=== PATIENT | female | born 1960 | race Two or more races ===

== ENCOUNTER 2017-07-12 09:39 | Inpatient (IN) | payer OTHER ==
[2017-07-04 14:41] LABS: APPEARANCE,URINE CLEAR; KETONES,URINE NEGATIVE (NEGATIVE); LEUKOCYTE ESTERASE ,URINE 2+ (NEGATIVE); NITRITE,URINE NEGATIVE (NEGATIVE); PH,URINE 6 (4.5-8.0); PROTEIN,URINE NEGATIVE (NEGATIVE); UROBILINOGEN,URINE NORMAL MG/DL (0.0-1.0)
[2017-07-04 14:44] LABS: BASOPHILS % (AUTO) 1.8 % (0.0-2.0); EOSINOPHILS % (AUTO) 2.7 % (0.0-3.0); LYMPHOCYTES % (AUTO) 36.2 % (20.0-45.0); MEAN CORPUSCULAR HEMOGLOBIN 31.5 PG (27.0-31.0); MEAN CORPUSCULAR HGB CONC 35.1 G/DL (32.0-36.0); MEAN CORPUSCULAR VOLUME 90 FL (80-99); MEAN PLATELET VOLUME 5.9 FL (6.5-10.1); MONOCYTES % (AUTO) 7.6 % (1.0-10.0); NEUTROPHILS % (AUTO) 51.7 % (45.0-75.0); PLATELET COUNT 255 K/UL (150-450); RED BLOOD COUNT 4.51 M/UL (4.20-5.40); RED CELL DISTRIBUTION WIDTH 10.8 % (11.6-14.8); WHITE BLOOD COUNT 6.1 K/UL (4.8-10.8)
[2017-07-04 14:51] LABS: BACTERIA,URINE FEW /HPF; RBC,URINE 0-2 /HPF (0 - 2); SQUAMOUS EPITHELIAL CELL,UR FEW /LPF (NONE/OCC)
[2017-07-04 14:58] LABS: ALANINE AMINOTRANSFERASE 38 U/L (12-78); ALBUMIN/GLOBULIN RATIO 1.2 (1.0-2.7); ANION GAP 8 mmol/L (5-15); ASPARTATE AMINO TRANSFERASE 18 U/L (15-37); CALCIUM 9.1 MG/DL (8.5-10.1); CARBON DIOXIDE 26 MMOL/L (21-32); CHLORIDE 106 MMOL/L (98-107); CREATININE 0.7 MG/DL (0.55-1.30); GLOMERULAR FILTRATION RATE > 60 mL/min (>60); POTASSIUM 3.9 MMOL/L (3.5-5.1); SODIUM 140 MMOL/L (136-145); TOTAL PROTEIN 7.4 G/DL (6.4-8.2)
[2017-07-04 15:05] LABS: INR 0.9 (0.9-1.1); PROTHROMBIN TIME 9.6 SEC (9.30-11.50)
--- NOTE | 2017-07-04 15:09 | Diagnostic Imaging Report ---
Indication: Cough Technique: 2 views of the chest Comparison: none. Findings: Lungs and pleural spaces are clear. Heart size is normal. Bones are unremarkable. Impression: No acute process
[~2017-07-12] VITALS: Ht 157.5 cm; Wt 82.6 kg
[2017-07-12] VITALS (9 sets, daily range): BP systolic 97–124; BP diastolic 62–84
[~2017-07-12 09:39] MED LIST: ceFAZolin sod 2 GM in D5W 110 ML IVPB ONE
[2017-07-12] MEDS ORDERED: NKM (10:19)
[2017-07-12 10:40] LABS: BASOPHILS % (AUTO) 1.1 % (0.0-2.0); EOSINOPHILS % (AUTO) 0.2 % (0.0-3.0); LYMPHOCYTES % (AUTO) 34.1 % (20.0-45.0); MEAN CORPUSCULAR HEMOGLOBIN 30.3 PG (27.0-31.0); MEAN CORPUSCULAR HGB CONC 33.4 G/DL (32.0-36.0); MEAN CORPUSCULAR VOLUME 91 FL (80-99); MEAN PLATELET VOLUME 6.4 FL (6.5-10.1); MONOCYTES % (AUTO) 10.3 % (1.0-10.0); NEUTROPHILS % (AUTO) 54.3 % (45.0-75.0); PLATELET COUNT 185 K/UL (150-450); RED BLOOD COUNT 4.79 M/UL (4.20-5.40); RED CELL DISTRIBUTION WIDTH 10.9 % (11.6-14.8); WHITE BLOOD COUNT 3.7 K/UL (4.8-10.8)
[2017-07-12] MEDS ORDERED: Thrombin 5000 units TOPIC ONE (10:56)
[2017-07-12] MEDS ORDERED: Thrombin 5000 units spray kit TOPIC ONE (10:57)
[2017-07-12] MEDS ORDERED: Bacitracin Oint 15gm Tube TOPIC ONE (10:57)
[2017-07-12] MEDS ORDERED: Gelfoam Absorbable 1gm powder pkt TOPIC ONE (10:57)
[2017-07-12] MEDS ORDERED: Bupivacaine 0.5% Inj 30 ml vial INJ ONE (10:57)
[2017-07-12] MEDS ORDERED: Vancomycin 1gm inj IVPB ONE (10:57)
[2017-07-12] MEDS ORDERED: Bacitracin 50000 Units Vial ONE (10:58)
--- NOTE | 2017-07-12 11:18 | Pre-Procedure Note/Attestation ---
Pre-Procedure Note/Attestation Complete Prior to Procedure Procedure Narrative: C3-6 laminoplasty, Inferior pole c2, and superior pole C7 laminectomy Indications for Procedure Pre-Operative Diagnosis: c2-7 stenosis Attestation I attest that I discussed the nature of the procedure; its benefits; risks and complications; and alternatives (and the risks and benefits of such alternatives ), prior to the procedure, with the patient (or the patient's legal major account representative). I attest that, if there was a reasonable possibility of needing a blood transfusion, the patient (or the patient's legal major account representative) was given the [facility] standardized written summary, pursuant to the Kennedy Rhina Blood Safety Act ([place] Health and Safety Code # 1645, as amended). I attest that I re-evaluated the patient just prior to the surgery and that there has been no change in the patient's H&P, except as documented below: SPIKE ADDISON Jul 12, 2017 11:18
[2017-07-12] MEDS ORDERED: Propofol 200mg/20ml IV ONE (11:56)
[2017-07-12] MEDS ORDERED: LR 1000ml ONE (11:56)
[2017-07-12] MEDS ORDERED: Glycopyrrolate 0.2mg/ml 1ml Vial ONE (11:56)
[2017-07-12] MEDS ORDERED: Midazolam 2mg/2ml Inj ONE (11:56)
[2017-07-12] MEDS ORDERED: Neostigmine 1mg/ml 10ml Inj ONE (11:56)
[2017-07-12] MEDS ORDERED: Zemuron 50mg/5ml Inj IV ONE (11:56)
[2017-07-12] MEDS ORDERED: Ketorolac 30mg Inj ONE (11:56)
[2017-07-12] MEDS ORDERED: Succinylcholine 20mg/ml 10ml vial ONE (11:56)
[2017-07-12] MEDS ORDERED: fentaNYL 100 mcg/2 mL IV ONE ×2 (11:56→12:00)
[2017-07-12] MEDS ORDERED: Morphine Sulfate 10mg/ml Inj ONE (11:56)
[2017-07-12] MEDS ORDERED: NS Irrig 1000ml ONE (12:00)
[2017-07-12] MEDS ORDERED: Sterile Water Irrig 1000ml IRRIG ONE (12:00)
[2017-07-12] MEDS ORDERED: Lidocaine 1% 10mg/ml/EPI 0.01mg/ml 50ml INJ ONE (13:00)
--- NOTE | 2017-07-12 13:25 | Anethesia Preoperative Eval ---
Anesthesia Pre-op PMH/ROS General Date of Evaluation: Jul 12, 2017 Time of Evaluation: 11:52 Anesthesiologist: Carolina ASA Score: ASA 2 Mallampati Score Class I : Soft palate, uvula, fauces, pillars visible Class II: Soft palate, uvula, fauces visible Class III: Soft palate, base of uvula visible Class IV: Only hard plate visible Mallampati Classification: Class II Surgeon: Adam Diagnosis: cervical spinal stenosis Surgical Procedure: Posterior cervical laminotomy C3 to C6 Anesthesia History: none Family History: no anesthesia problems Allergies: Coded Allergies: No Known Allergies (Unverified , 07/12/17) Medications: see eMAR Past Medical History Cardiovascular: Reports: HTN, Denies: CAD, MA, valve dz, arrhythmia, other Pulmonary: Denies: asthma, COPD, ASHLYN, other Gastrointestinal/Genitourinary: Reports: GERD, Denies: CRI, ESRD, other Neurologic/Psychiatric: Reports: other - chronic pain, Denies: dementia, CVA, depression/anxiety, TIA Endocrine: Denies: DM, hypothyroidism, steroids, other HEENT: Denies: cataract (L), cataract (R), glaucoma, IONE (L), IONE (R), other Hematology/Immune: Denies: anemia, DVT, bleeding disorder, other Musculoskeletal/Integumentary: Denies: OA, RA, DJD, DDD, edema, other Other: other - overweight PMH Narrative: as above PSxH Narrative: none Anesthesia Pre-op Phys. Exam Physician Exam Last Vital Signs Date Time Temp Pulse Resp B/P (MAP) Pulse Ox O2 Delivery O2 Flow Rate FiO2 07/12/17 10:21 98.4 78 17 108/75 97 Room Air Constitutional: NAD Neurologic: CN 2-12 intact Cardiovascular: RRR, no M/R/G Respiratory: CTA Gastrointestinal: S/NT/ND Airway Exam Mallampati Score: Class II MO: full Neck: flexible ROM: limited Teeth: missing Dentures: no upper, no lower Anesthesia Pre-op A/P Labs Hematology Test 07/12/17 10:00 White Blood Count 3.7 K/UL (4.8-10.8) L Red Blood Count 4.79 M/UL (4.20-5.40) Hemoglobin 14.5 G/DL (12.0-16.0) Hematocrit 43.4 % (37.0-47.0) Mean Corpuscular Volume 91 FL (80-99) Mean Corpuscular Hemoglobin 30.3 PG (27.0-31.0) Mean Corpuscular Hemoglobin Concent 33.4 G/DL (32.0-36.0) Red Cell Distribution Width 10.9 % (11.6-14.8) L Platelet Count 185 K/UL (150-450) Mean Platelet Volume 6.4 FL (6.5-10.1) L Neutrophils (%) (Auto) 54.3 % (45.0-75.0) Lymphocytes (%) (Auto) 34.1 % (20.0-45.0) Monocytes (%) (Auto) 10.3 % (1.0-10.0) H Eosinophils (%) (Auto) 0.2 % (0.0-3.0) Basophils (%) (Auto) 1.1 % (0.0-2.0) Studies Pre-op Studies: EKG - NSR Risk Assessment & Plan Assessment: ASA 2 Plan: GA with ETT prone position neuromonitoring Status Change Before Surgery: No Pre-Antibiotics Drug: Ancef 1 gr. Given Within 1 Hr of Incision: Yes Time Given: 12:42 SARIKA MCCLENDON M.D. Jul 12, 2017 13:25
[2017-07-12] MEDS ORDERED: LR 1000ml 1,000 ML IVLG SCH (13:38)
[2017-07-12] MEDS ORDERED: Midazolam 2mg/2ml Inj IVP PRN (13:45)
[2017-07-12] MEDS ORDERED: Hydromorphone 0.5mg/0.5ml inj IVP PRN (13:45)
[2017-07-12] MEDS ORDERED: Meperidine 50mg/ml Inj(FOR RIGORS ONLY) IV PRN ×2 (13:45)
[2017-07-12] MEDS ORDERED: DiphenhydrAMINE 50mg/ml Inj IVP PRN (13:45)
[2017-07-12] MEDS ORDERED: Metoclopramide 10mg/2ml Inj IVP PRN ×2 (13:45→15:45)
[2017-07-12] MEDS ORDERED: Ketorolac 30mg Inj IV PRN (13:45)
[2017-07-12] MEDS ORDERED: Acetaminophen (Non formulary) 100 ML IV ONE (14:00)
--- NOTE | 2017-07-12 15:34 | Brief Operative Note ---
Immediate Post Operative Note Operative Note Pre-op Diagnosis: c2-7 stenosis Procedure: c3-6 laminoplasty, c2 and c7 partial laminectomy, R c34 and c45 laminoforaminotomy Post-op Diagnosis: same as pre-op Findings: consistent w/pre-op dx studies Surgeon: kong Parquetry Floor Layer: kashif mota Anesthesiologist: rhys Anesthesia: general Specimen: none Complications: none Condition: stable Fluids: 1000 Estimated Blood Loss: volume - 100 Drains: hemovac Implant(s) used?: Yes - aesculap laminoplasty screws and graft SPIKE ADDISON Jul 12, 2017 15:34
[2017-07-12] MEDS ORDERED: HYDROmorphone 1mg/ml Carpuject SUBQ PRN (15:45)
[2017-07-12] MEDS ORDERED: Norco 5mg/325mg tab ORAL PRN (15:45)
[2017-07-12] MEDS ORDERED: HYDROmorphone 1mg/ml Carpuject IVP PRN (15:45)
[2017-07-12] MEDS ORDERED: Norco 7.5mg/325mg tab ORAL PRN ×2 (15:45)
[2017-07-12] MEDS ORDERED: Milk of Magnesia 30ml Ud ORAL PRN ×2 (15:45→19:15)
--- NOTE | 2017-07-12 16:33 | Immediate Post-Op Evaluation ---
Immediate Post-Op Evalulation Immediate Post-Op Evalulation Procedure: C3-C6 posterior cervical laminotomy with interbody fusion Date of Evaluation: Jul 12, 2017 Time of Evaluation: 16:32 IV Fluids: 1200 Blood Products: none Estimated Blood Loss: 100 Urinary Output: 100 Blood Pressure Systolic: 116 Blood Pressure Diastolic: 75 Pulse Rate: 74 Respiratory Rate: 20 O2 Sat by Pulse Oximetry: 100 Temperature (Fahrenheit): 97.7 Pain Score (1-10): 2 Nausea: No Vomiting: No Complications none Patient Status: reacts, patent, extubated, none Hydration Status: adequate SARIKA MCCLENDON M.D. Jul 12, 2017 16:33
--- NOTE | 2017-07-12 17:45 | Diagnostic Imaging Report ---
Indication: PAIN right arm pain left hand numbness Technique: Intraoperative Comparison: None Findings: Intraoperative images document multilevel posterior cervical spine fusion surgery Impression: Intraoperative imaging, as described
--- NOTE | 2017-07-12 17:45 | Operative Note - Dictated ---
DATE OF OPERATION: 07/12/2017 SURGEON: Sheng Medina M.D. SENIOR CYTOTECHNOLOGIST: Jose Hooper PA-C. ANESTHESIOLOGIST: Kyle Figueroa M.D. ANESTHESIA TYPE: General endotracheal anesthesia. 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 PROCEDURE: 1. Laminoplasty C3. 2. Laminoplasty C4. 3. Laminoplasty C5. 4. Laminoplasty C6. 5. Partial laminectomy inferior one-half of C2 and laminectomy partial superior one-half of C7. 6. Laminal foraminotomy right side C3-C4 and C4-C5 with decompression of nerve roots. 7. Interlaminar fusion using plates and screws as well as allograft laminoplasty bone (Aesculap ) at C3, C4, C5 and C6. 8. Use of fluoroscopy. 9. Use of operating microscope. 10. Neurodiagnostic monitoring. 11. Application of Jain pins. ESTIMATED BLOOD LOSS: 100 mL. FLUIDS: 1000 mL. COMPLICATIONS: None. FINDINGS: Stable fixation at C3, C4, C5 and C6 and adequate decompression at the C2 through C7 levels, the nerve roots at right C3-C4 and C4-C5 still partially compressed due to anterior structures. INDICATIONS: The patient is a very pleasant woman who sustained an injury with myeloradiculopathic findings with an MRI consistent with severe cord compression as well as cord signal change. Surgical intervention was required due to neurologic deficit. RISK NOTE: The patient was explained in detail risks and benefits of surgery, but to include but not be limited to those of bleeding, infection, damage to nerves, vessels, tendons, anesthetic risk, allergic reaction, aspiration, and possibly . OPERATIVE PROCEDURE IN DETAIL: The patient was taken to operating suite after general endotracheal anesthesia was obtained. Gilmore catheter was placed. Jain pins were applied using standard sterile technique. The patient was then turned onto a radiolucent table with chest bolsters. Jain was attached to the head attachment. Arms were tucked. All bony prominences were padded. The neck was prepped and draped in usual sterile fashion. At this point, a midline incision was carried out from C2 through C7. Subperiosteal dissection was carried out bilaterally. Self-retaining retractors were put into place. First attention was made to the left side and a laminectomy of the inferior one-half of the C2 lamina was performed on the left side. Similarly, laminectomy of the superior portion of C7 was performed. Once the decompression was complete on both sides, scoring and partial laminar drilling was performed on the left side, which was the hinge side. At this time, I then switched sides and worked on the right side. Similarly, hemilaminectomy was performed of the inferior portion of C2. At this point, a laminal foraminotomy was performed at C3-C4 and C4-C5, this was performed using standard technique by drilling out the lamina as well as the portion of the lateral mass to unroof the underlying nerve roots. Care was taken to leave a adequate bridge for placement of laminoplasty graft. All of this was performed using standard technique at C3-C4 and C4-C5. At this point, then a complete drilling of the laminae on the right side at C3, C4, C5, and C6 was performed. Once I was able to cut through the lamina, care was taken to leave the ligamentum flavum in place. At this point, the appropriate sized Aesculap bone graft as well as plate and screws were chosen. The C3 level was a 4 millimeter graft, C5 level was a 6 millimeter graft, C6 level was 6 millimeter graft. At this point, all screw holes were carefully drilled using standard technique. Final x-rays obtained demonstrating good overall screw positioning with the exception of the screws at C6, which may have been somewhat and therefore a shorter rescue screw was applied. At this point, then a high-speed drill was used to complete the laminectomy of the right side at C7 decompressing the spinal cord further and distally. At this point, once satisfied with the completion of the procedure, copious irrigation was performed. Vancomycin powder was placed deep to the fascia as well as suprafascially the fascia was repaired using #1 Vicryl, subcutaneous closure using 2-0 Vicryl, Dermabond and a sterile dressing was applied. The patient was turned onto her back and Jain pins were removed. Overall tolerating the procedure well. At the time of this dictation, the patient was still awaiting extubation. Sponge and needle counts were correct and neurodiagnostic monitoring remained stable throughout the operation. Sheng Fran Medina DR: BERTIN JOB#: [id number] CC:
[2017-07-12] MEDS ORDERED: Norco 10mg/325mg tab ORAL PRN ×2 (20:30)
[2017-07-12] MEDS ORDERED: Tylenol #3 tab (300mg/30mg) ORAL PRN (20:30)
[2017-07-12] MEDS: ceFAZolin sod 1 GM in D5W 55 ML IV SCH (21:10)
[2017-07-12] MEDS: D5 1/2NS 1,000 ML IV SCH (21:20)
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
[2017-07-13] VITALS: BP 116/80
[2017-07-13] MEDS: HYDROmorphone 1mg/ml Carpuject IVP PRN ×2 (02:06→04:01)
[2017-07-13 04:00] VITALS: BP 105/79
[2017-07-13] MEDS: ceFAZolin sod 1 GM in D5W 55 ML IV SCH ×2 (07:11→07:13)
[2017-07-13] MEDS: D5 1/2NS 1,000 ML IV SCH ×2 (07:15→14:34)
--- NOTE | 2017-07-13 07:15 | 48 Hour Post Anesthesia Eval ---
Post Anesthesia Evaluation Procedure: C3-C6 posterior cervical laminotomy with interbody fusion Date of Evaluation: Jul 13, 2017 Time of Evaluation: 06:24 Blood Pressure Systolic: 105 0: 79 Pulse Rate: 78 Respiratory Rate: 18 Temperature (Fahrenheit): 97.8 O2 Sat by Pulse Oximetry: 96 Airway: patent Nausea: No Vomiting: No Pain Intensity: 3 Hydration Status: adequate Cardiopulmonary Status: Stable Mental Status/LOC: patient returned to baseline Follow-up Care/Observations: 0 Post-Anesthesia Complications: 0 Follow-up care needed: N/A Frank Soliz MD Jul 13, 2017 07:15
[2017-07-13 08:00] VITALS: BP 136/70
--- NOTE | 2017-07-13 08:43 | Orthopedic Spine Progress Note ---
Ortho Spine - Progress Note Subjective Symptoms: c/o post-op neck pain, improved - as compared to pre-op Objective Vital Signs: Last 24 Hour Vital Signs Date Time Temp Pulse Resp B/P (MAP) Pulse Ox O2 Delivery O2 Flow Rate FiO2 07/13/17 07:15 78 18 96 07/13/17 04:00 97.8 76 18 105/79 96 07/13/17 00:00 98.5 76 17 116/80 95 07/12/17 20:00 97.5 66 19 97/62 96 07/12/17 18:00 97.3 75 20 116/79 98 Nasal Cannula 3.0 07/12/17 17:30 78 18 115/75 98 Nasal Cannula 3.0 07/12/17 17:15 72 21 118/79 98 Nasal Cannula 3.0 07/12/17 17:00 72 20 112/77 98 Nasal Cannula 3.0 07/12/17 16:45 74 17 116/75 100 Simple Mask 6.0 07/12/17 16:33 74 20 100 07/12/17 16:30 73 15 122/82 100 Simple Mask 6.0 07/12/17 16:22 97.5 75 22 124/84 100 Simple Mask 6.0 07/12/17 10:21 98.4 78 17 108/75 97 Room Air Wound: clean, intact Drains: hemovac Neuro Status: abnormal - but improved as compared to post op, r=l upper extremity strength Assessment Procedure Performed: c3-6 laminoplasty, c2 and c7 partial laminectomy, R c34 and c45 laminoforaminotomy Plan Plan: PT, pain management, continue drain SPIKE ADDISON Jul 13, 2017 08:43
[2017-07-13] MEDS: Pericolace tab ORAL SCH ×2 (09:02→17:05)
--- NOTE | 2017-07-13 10:31 | Diagnostic Imaging Report ---
Indication: Cough Technique: One view of the chest Comparison: 09/05/16 Findings: Lungs and pleural spaces are clear. Heart size is normal. No significant change Impression: No acute process
[2017-07-13 12:00] VITALS: BP 140/69
[2017-07-13 16:00] VITALS: BP 142/77
--- NOTE | 2017-07-13 17:30 | Progress Note ---
DATE: 07/13/2017 ACUTE PAIN MANAGEMENT PHYSICIAN PROGRESS NOTE MEDICATIONS: Medication administration record reviewed. Medications include Tylenol, Fioricet, Tylenol No. 3, Mylanta, Cepacol, Catapres, Valium, Benadryl, [place], Dilaudid, milk of magnesia, Zofran, Protonix, and Nicole-Colace. LABORATORY DATA: Laboratory studies from yesterday shows a white count of 4, hematocrit 43, and platelets 185,000. OBJECTIVE: VITAL SIGNS: Pain level 6/10 on the visual analog pain scale. Afebrile, pulse 84, respirations 19, blood pressure 140/69, and oxygen saturation 96% on room air. I spent over 60 minutes in consultation today. I saw the patient at the bedside. I discussed the case with the nurse RN, Rebekah along with the surgeon, Dr. Medina. The patient has been able to ambulate out of bed. I am working with the patient's prosecuting attorney office, Mini to help the patient obtain an outpatient prescription for pain medications. The patient has no health insurance and will have difficulty obtain for an outpatient prescription. The patient is somewhat nauseated today. I tried to disconnect the IV fluids to encourage movement in and out of bed. But since the nausea has started since her recent dose of [place], I will restart the IV fluids for rehydration. I have ordered Tylenol No. 3 with Codeine as a trial for mild pain. I have also now added tramadol 50 mg q.8 hours p.r.n. for moderate pain. I will continue the breakthrough dose of intravenous Dilaudid for severe pain complaints. The patient does respond well to Valium and I have asked the nurse to dose the patient with a 2.5 mg of oral dose of Valium now, which should help her spasm as well and hopefully reduce her opioid requirements as opioid seem to cause nausea. The patient denies any headache symptoms. Her indwelling cervical spine drain remains in place. Dr. Medina evaluated the patient earlier this morning and decided to keep the catheter intact for now. We will evaluate the Hemovac drain output tomorrow. The patient should continue ambulating as much as possible. The patient has been very noncompliant using her incentive spirometer. I did encourage aggressive usage of the incentive spirometer to avoid postoperative fevers and atelectasis. The patient is mildly obese with a body mass index of 33. The patient does not have a good appetite. She states she does not like the food. I encouraged her to ask family and friends to bring an outside food that may have a better flavor for her. The patient denies any short of breath or chest pain. The patient shows no evidence for anxiety or panic attacks. We will continue supportive care for now. Ronny Hatfield M.D. DR: SKYLAR JOB#: [id number] CC:
[2017-07-13] MEDS: traMADol 50mg tab ORAL PRN (18:34)
[2017-07-13 20:00] VITALS: BP 136/87
[2017-07-14] VITALS: BP 121/76
[2017-07-14] MEDS: D5 1/2NS 1,000 ML IV SCH ×2 (00:30→10:29)
[2017-07-14 04:00] VITALS: BP 136/86
[2017-07-14] MEDS: HYDROmorphone 1mg/ml Carpuject IVP PRN (06:01)
[2017-07-14] MEDS ORDERED: oxyCODONE 5mg IR tab ORAL PRN (06:15)
[2017-07-14] MEDS ORDERED: oxyCODONE 5mg IR tab ORAL ONE (07:45)
[2017-07-14 08:15] VITALS: BP 124/79
[2017-07-14] MEDS: Pericolace tab ORAL SCH (08:42)
--- NOTE | 2017-07-14 09:07 | Orthopedic Spine Progress Note ---
Ortho Spine - Progress Note Subjective Symptoms: c/o post-op neck pain, improved - as compared to pre-op Objective Vital Signs: Last 24 Hour Vital Signs Date Time Temp Pulse Resp B/P (MAP) Pulse Ox O2 Delivery O2 Flow Rate FiO2 07/14/17 08:15 98.5 78 20 124/79 92 07/14/17 04:00 97.3 85 20 136/86 93 Nasal Cannula 07/14/17 00:00 97.3 81 20 121/76 92 Nasal Cannula 07/13/17 20:00 97.3 84 20 136/87 100 Room Air 07/13/17 20:00 Nasal Cannula 2.0 28 07/13/17 20:00 95 Nasal Cannula 2.0 28 07/13/17 19:33 98.8 07/13/17 16:00 98.8 79 19 142/77 95 Room Air 07/13/17 12:00 98.9 84 19 140/69 96 Room Air 07/13/17 11:06 97.8 Wound: clean, intact Drains: none Assessment Procedure Performed: c3-6 laminoplasty, c2 and c7 partial laminectomy, R c34 and c45 laminoforaminotomy Plan Plan: PT, pain management, d/c drain, discharge plan SPIKE ADDISON Jul 14, 2017 09:07
[2017-07-14] MEDS ORDERED: PERCOCET 10-321 EACH ORAL ×2 (09:42→09:43)
[2017-07-14] MEDS ORDERED: VALIUM10 MG ORAL (09:44)
[2017-07-14] MEDS ORDERED: VALIUM5 MG ORAL (09:45)
--- NOTE | 2017-07-14 10:15 | Progress Note ---
DATE: 07/14/2017 ACUTE PAIN MANAGEMENT PHYSICIAN PROGRESS NOTE MEDICATIONS: Medication administration record reviewed. Medications include IV fluids, Nicole-Colace, and Protonix. P.r.n. medications include Zofran, Tylenol No. 3 with Codeine, milk of magnesia, Fioricet, Benadryl, Mylanta, Dilaudid, Cepacol, Catapres, Valium, Ultram, and oxycodone. LABORATORY STUDIES: No interval laboratory studies. VITAL SIGNS: Pain level is 6/10 on the visual analog pain scale. Afebrile, pulse 85, respirations 20, blood pressure 136/86, and oxygen saturation 93% on supplemental oxygen. I spent over 60 minutes in consultation today. I discussed the case with the surgeon, Dr. Medina along with the overnight nurse, Ana SOW. I saw the patient at the bedside with the nurse RN, Lupe. The patient's boyfriend was stayed overnight with the patient for good social support. The patient is neurologically intact and has been ambulating in and out of bed to the restroom frequently. The patient still has minimal appetite, but denies any nausea symptoms. She denies any shortness of breath or chest pain. The patient is swallowing, breathing, and phonating within normal limits. The patient has normal vital signs. She has been very poorly compliant using her incentive spirometer. I encouraged the patient to be much more aggressive with her incentive spirometer. The patient continued on supplemental oxygen, which I would expect should be able to be weaned, especially once she becomes more compliant using her incentive spirometer. The patient does have sequential compression pneumatic devices in place for DVT prophylaxis. Last night, we did trial the patient on Tylenol No. 3 with Codeine with dinner. The patient states that this pain medication was not strong enough. Earlier in the hospital admission, she was trialed on [place], which caused significant nausea. Remaining common options seem to be tramadol and oxycodone. I asked the patient repeatedly if she has trialed Percocet in the past, in order to avoid similar adverse side effects such as nausea encountered with dosing her with [place] earlier. The patient states that she is not familiar with Percocet and does not believe she has trialed it before. I have asked the nursing team to use her oxycodone 5 mg dose with her breakfast. I would recommend taking the pill with breakfast to help reduce the risk for nausea. If the dosing is working, I will continue the 5 mg dose every three hours p.r.n. for breakthrough pain. This dose certainly could be increased to 10 mg. The Valium has been affective. A 2.5 mg dose given yesterday was easily tolerated and the patient did ask for higher dose. I will increase the dose to 5 mg. I continue to communicate with the patient's taproom attendant office to help the patient obtain pain medications for outpatient usage. The final prescription still remains unknown as the patient has not been able to find adequate analgesia with an oral pain medication trial so far. At this time, the most likely would be Percocet and Valium. We will see how the patient tolerates oxycodone later this morning. With the patient resting in the right lateral decubitus position, the patient's hair was held by the nurse, Lupe to avoid contamination with the posterior cervical wound. I removed the posterior cervical wound dressing showing the staple line clean, dry, and intact. The drain hole site appeared clean and dry as well. I removed the Steri-Strips holding in the indwelling cervical spine drain catheter. Then, at end-expiration with the Hemovac drain taken off of suction, I personally removed the indwelling posterior cervical spine drain catheter. The tip was intact. Alcohol swabbing was applied generously to the drain hole site as well as the staple line, with hair kept away from the wound. Finally, a sterile gauze was applied to the staple line and drain hole site with Tegaderm and island bordered gauze dressings applied to keep the wound clean and dry. There were no complications. Ronny Hatfield M.D. DR: DIANE JOB#: [id number] CC:
[2017-07-14] MEDS: traMADol 50mg tab ORAL PRN (11:10)
[2017-07-14 11:52] VITALS: BP 118/78
--- NOTE | 2017-07-15 13:40 | Discharge Summary ---
Discharge Summary Hospital Course Date of Admission Jul 12, 2017 at 09:39 Date of Discharge Jul 14, 2017 at 13:00 Admitting Diagnosis HPI Aristides Dowell is a 56 year old female who was admitted on Jul 12, 2017 at 09:39 for Cervical Spine Stenosis Hospital Course [id number] Discharge Discharge Disposition Patient was discharged to Home (01) Discharge Diagnoses: Radha Zayas NP Jul 15, 2017 13:40
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
== END 2017-07-14 13:00 | disposition home or self-care (01) | DRG 473 ==
LOC: SDSOVERFLO 09:39 → 3E 18:44
PROC: 0PU30JZ Supplement Cervical Vertebra with Synthetic Substitute, Open Approach (ICD-10-PCS; principal; 2017-07-12 11:30)
PROC: 4A11X4G Monitoring of Peripheral Nervous Electrical Activity, Intraoperative, External Approach (ICD-10-PCS; principal; 2017-07-12 11:30)
PROC: 0RG20AJ Fusion of 2 or more Cervical Vertebral Joints with Interbody Fusion Device, Posterior Approach, Anterior Column, Open Approach (ICD-10-PCS; principal; 2017-07-12 11:30)
DX: M48.02 Spinal stenosis, cervical region (principal); E66.9 Obesity, unspecified; M50.11 Cervical disc disorder with radiculopathy, high cervical region; G89.18 Other acute postprocedural pain; Z68.33 Body mass index [BMI] 33.0-33.9, adult; J02.9 Acute pharyngitis, unspecified
CPT/HCPCS: 36415; 71010; 71020; 72040; 76001; 80053; 81001; 85025; 85610; 85730; 86850; 86900; 86901; 87081; 87086; 87181; 94003; 94150; 94760; C9399; J2250; J2405; J2710; J2765